=== PATIENT | female | born 1945 | race Caucasian/White ===

== ENCOUNTER → 2022-05-15 | Outpatient (CLI) | payer MEDICARE | END | disposition home or self-care (01) | LOC: RAH 12:12 | PROVIDERS: ATTEND Family Medicine | DX: K21.9 Gastro-esophageal reflux disease without esophagitis (principal); J38.00 Paralysis of vocal cords and larynx, unspecified; K31.84 Gastroparesis; R13.10 Dysphagia, unspecified | CPT/HCPCS: 74230; 92611 ==